=== PATIENT | male | born 1970 | race Caucasian/White ===

== ENCOUNTER 2019-12-19 18:36 | Emergency (ER) | payer OTHER, SELFPAY ==
--- NOTE | 2019-12-19 18:51 | XR_ITS ---
WS: [id number] Portable AP upright chest, 12/19/2019 Clinical Data: cough Comparison: None. Findings: No nodules, masses or effusions are seen. The heart is normal. The pulmonary vascularity is not increased. No pneumonia or pneumothorax is seen. There is a healed fracture of the midshaft of t he right clavicle XR/XR chest 1V portable [id number] Impression: Negative chest.
[2019-12-19 19:07] VITALS: BP 112/90; PULSE 100; RESP 20; TEMP 37.6; O2SAT 100; BMI 29.2
[2019-12-19 21:02] LABS: Hematocrit 50.8 % (42.0-52.0); Hemoglobin 16.6 g/dL (11.7-16.6); Mean Corpuscular HGB Conc 32.7 g/dL (30.0-36.0); Mean Corpuscular Hemoglobin 29.9 pg (28.0-34.0); Mean Corpuscular Volume 91.5 fL (80-94); Mean Platelet Volume 9.7 fL (7.4-10.4); Platelet Count 314 10^3/cmm (130-400); Red Blood Count 5.55 10^6/uL (4.1-5.3); Red Cell Distribution Width 11.9 % (12.1-15.1); White Blood Count 10.8 10^3/uL (4.0-10.0)
[2019-12-19 21:32] LABS: Influenza A by IFA Positive (Negative); Influenza B by IFA Negative (Negative)
[2019-12-19 22:28] VITALS: BP 117/77; PULSE 84; RESP 14; TEMP 36.3; O2SAT 96
[2019-12-19 22:30] LABS: Absolute Segmented Neutrophil 8.8 10/cmm (1.6-7.1); Lymphocytes 4 %; Monocytes Absolute 1.5 10^3/cmm (0.1-0.6); Segmented Neutrophils 82 %; Total Cells Counted 100 (0-100)
[2019-12-19 22:31] LABS: Platelet Estimate Normal (Normal)
[2019-12-19 22:34] VITALS: BP 117/77; PULSE 77; RESP 14; O2SAT 95
--- NOTE | 2019-12-19 22:42 | ED_ITS ---
HPI - Weakness General: Chief complaint: Weakness Stated complaint: weakness/cough Time Seen by Provider: 12/19/19 22:38 Source: patient Mode of arrival: ambulatory Limitations: no limitations History of Present Illness: HPI Narrative: Patient comes in today with 24-hour history of malaise, fever, cough. Patient appears mildly unwell. Patient appears in no acute distress. 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 Patient states he started feeling ill yesterday. Associated symptoms: Reports fever(s) Review of Systems General: Reports: 10 or more systems reviewed and unremarkable except in HPI and below Const: Reports: fever, body aches and malaise PFSH ED PFSH: Statuses (acute, chronic, etc) shown below reflect problem list status as previously entered and may not be historically accurate Social History Smoking and tobacco status: former smoker Physical Exam Const: COMMON NORMALS: no apparent distress and oriented x3 GENERAL APPEARANCE: cooperative HENMT: COMMON NORMALS: normocephalic, external ears normal, EAC's normal, TM's normal bilaterally and external nose normal HEAD & SCALP: normal to inspection and normocephalic FACE & SINUS: normal facial exam NOSE: external nose normal GENERAL EAR: hearing not grossly impaired EXTERNAL EAR: Yes external ears normal EXTERNAL AUDITORY CANAL: EAC's normal TYMPANIC MEMBRANE: TM's normal bilaterally MOUTH: oral and palatal mucosa normal THROAT: posterior oropharynx normal Eye: COMMON NORMALS: PERRL and EOMs intact bilaterally PUPIL: Yes PERRL Neck/C-Spine: COMMON NORMALS: full ROM and no lymphadenopathy Lymph: LYMPHATIC: no lymphedema noted Chest: COMMONS NORMALS: inspection of chest normal and palpation of chest normal Resp: COMMON NORMALS: normal respiratory effort AUSCULTATION: rhonchi Cardio: COMMON NORMALS: regular rate and regular rhythm RATE: regular rate RHYTHM: regular rhythm GI: COMMON NORMALS: normal to inspection, nondistended, normoactive bowel sounds and non-tender : COMMON NORMALS: Yes no CVA tenderness BLADDER/KIDNEY EXAM: Yes no CVA tenderness Back/Pelvis: COMMON NORMALS: no CVA tenderness and thoracic and lumbar spine normal to inspection Extremity: COMMON NORMALS: normal to inspection GENERAL: No edema Neuro: COMMON NORMALS: oriented x3, moves all extremities and no focal motor deficits Psych: COMMON NORMALS: mental status grossly normal and cooperative Skin: COMMON NORMALS: no rashes or lesions noted GENERAL SKIN EXAM: no rashes or lesions noted Course Vital Signs: Vital signs: Vital Signs Temperature 97.3 F L 12/19/19 22:28 Pulse Rate 77 12/19/19 22:34 Respiratory Rate 14 12/19/19 22:34 Blood Pressure 117/77 12/19/19 22:34 Pulse Oximetry 95 12/19/19 22:34 MDM - Weakness MDM Narrative: Medical decision making narrative: Patient was brought in today for concerns of weakness and fever. On exam we note lung sounds with some mild rhonchi. Skin is warm and dry color is pink. Respirations even. Heart rates regular. Patient is alert and oriented. Differential diagnosis includes pneumonia, influenza, viral syndrome, bronchitis. Flu swab was positive for type a flu. Chest x-ray was normal. Labs otherwise are normal. Reviewed exam with patient with recommendations for follow-up. Patient reports understanding. Lab Data: Labs: Lab Results 12/19/19 12/19/19 Range/Units 20:53 21:00 WBC 10.8 H (4.0-10.0) 10^3/ uL RBC 5.55 H (4.1-5.3) 10^6/u L Hgb 16.6 (11.7-16.6) g/dL Hct 50.8 (42.0-52.0) % MCV 91.5 (80-94) fL MCH 29.9 (28.0-34.0) pg MCHC 32.7 (30.0-36.0) g/dL RDW 11.9 L (12.1-15.1) % Plt Count 314 (130-400) 10^3/c mm MPV 9.7 (7.4-10.4) fL Gran % Cancelled Neut % (Auto) Cancelled Lymph % (Auto) Cancelled [place] % (Auto) Cancelled Eos % (Auto) Cancelled Baso % (Auto) Cancelled Neut # (Auto) Cancelled Lymph # (Auto) Cancelled [place] # (Auto) Cancelled Eos # (Auto) Cancelled Baso # (Auto) Cancelled Absolute Gran (aut o) Cancelled Nucleated RBC % (a uto) Cancelled Total Counted 100 (0-100) Segmented Neutroph ils 82 % Lymphocytes (Man[place]) 4 % Monocytes (Manual) 14.0 % Absolute Monocytes 1.5 H (0.1-0.6) 10^3/c mm Nucleated RBCs # Cancelled Platelet Estimate Normal (Normal) Influenza Type A A g Positive H (Negative) POC Influenza B Ag Negative (Negative) Discharge Plan Discharge Patient Disposition: Home, Self-Care Clinical Impression: Influenza A Condition: Stable Prescriptions: New oseltamivir 75 mg capsule 75 mg PO BID 5 Days Qty: 10 RF: 0 promethazine-DM 6.25-15 mg/5 mL syrup 5 ml PO Q6H PRN (Reason: cough and nausea) Qty: 120 RF: 0 Discharge Orders: Discharge Order (Routine); Ordered 12/19/19 Ordered By: Elvis Camarillo Referrals: Timmy De La Cruz, [Family Provider] - Discharge Diet: Advance as tolerated Discharge Activity: Increase activity as tolerated Patient Instructions: Influenza (ED) Activity Restrictions/Additional Instructions: Drink plenty of fluids Acetaminophen and ibuprofen for pain and fever Medications as directed Follow-up with primary care as needed Coding Level of Care Code ED 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
[2019-12-19] MEDS: HYDROcodone-acetaminophen 7.5-325 mg Tablet 1 TAB PO (22:53)
[2019-12-19] MEDS: ondansetron 4 MG Tablet PO (22:53)
[2019-12-19] MEDS: oseltamivir phosphate 75 mg Capsule PO (22:54)
[2019-12-19 23:15] VITALS: BP 108/78; PULSE 108; RESP 18; O2SAT 96
== END 2019-12-19 23:16 | disposition home or self-care (01) ==
PROVIDERS: Emergency Medicine; Emergency Provider Nurse Practitioner Family; Family Provider Family Medicine
DX: J10.1 Influenza due to other identified influenza virus with other respiratory manifestations (principal); Z87.891 Personal history of nicotine dependence
CPT/HCPCS: 36415; 71045; 85007; 85025; 85027; 87040; 87804; 99281; 99283; Q0162